=== PATIENT | male | born 1950 | race Caucasian/White ===

== ENCOUNTER 2017-12-10 10:00 | Outpatient (RCR) | payer MEDICARE, OTHER ==
[2017-09-11 17:35] VITALS: BP 118/78
[2017-09-11 17:36] VITALS: BP 122/70
--- NOTE | 2017-09-11 18:04 | CARDIAC REHAB PLAN OF CARE ---
Physician: Sangita BRAUN Patient is being seen: Pepe Porter Medical Diagnosis: TAVR Date of Initial Evaluation: September 11, 2017 SHORT TERM GOALS Short Term Goals Due Date: 10/11/17 Short Term Goals: 67 year old male phase II patient comes to cardiac rehab after having a TAVR procedure on August 07, 2017. Patient presents as alert and oriented with a room air SPO2 at 93% and the tank riveter shows a NSR without ectopy and resting rates in the 70's. Patient will need to be consistent with cardio type exercise of at least 150 minutes each week at a moderate level (3.0-6.0 METs) and add in weight resistance exercise at least twice a week. Patient will adjust diet to follow a heart healthy diet with proper calorie intake to allow for gradual weight loss from his current 203 pounds to his BMI max healthy weight of 164 pounds. Short Term Goals Met: Short Term Goals Not Met Due To: TRAINING DEVELOPER GOALS [facility] Goal Due Date: 11/11/17 [facility] Goals: nursing home goals are to maintain that consistency of exercise each week and to also maintain a consistent heart healthy diet. Improve cardiac health and overall health, and to lose weight. 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 Patient would like to improve endurance and strength and lose some weight. Patient Goals Met: Patient Goals Not Met Due To: Cardiac Rehabilitation Plan of Care Comment: The cardiac rehab staff will monitor, record, and evaluate vitals, ECG, and exercise results to provide the best plan of care for the patient throughout the 36 visit phase II program. CR staff will educate and motivate the patient during visits for rehab. FREDDY
[2017-09-17 13:28] VITALS: BP 128/78
[2017-09-17 13:29] VITALS: BP 132/68
[2017-09-19 13:28] VITALS: BP_SYST 118; BP_DIAS 58; BP_DIAS 66
[2017-09-21 17:34] VITALS: BP 124/60
[2017-09-21 17:35] VITALS: BP 118/68
[2017-09-24 17:10] VITALS: BP 118/62
[2017-09-24 17:11] VITALS: BP 110/92
[2017-09-26 13:01] VITALS: BP 120/58
[2017-09-26 13:02] VITALS: BP 128/62
[2017-09-28 13:02] VITALS: BP_SYST 112; BP_SYST 128; BP_DIAS 60; BP_DIAS 78
[2017-10-01 13:00] VITALS: BP 115/68
[2017-10-01 13:01] VITALS: BP 115/60
[2017-10-03 16:30] VITALS: BP_SYST 118; BP_SYST 138; BP_DIAS 60; BP_DIAS 70
[2017-10-05 17:08] VITALS: BP 132/70
[2017-10-05 17:09] VITALS: BP 130/70
[2017-10-08 17:12] VITALS: BP 114/78
[2017-10-08 17:13] VITALS: BP 124/70
--- NOTE | 2017-10-10 11:51 | CARDIAC REHAB PLAN OF CARE ---
Physician: Jackelyn Patient is being seen: Pepe Porter Medical Diagnosis: TAVR Date of Initial Evaluation: 2016 SHORT TERM GOALS Short Term Goals Due Date: 11/10/17 Short Term Goals: 67 year old male phase II patient comes to cardiac rehab after having a TAVR procedure on August 07, 2017. Patient presents as alert and oriented with a room air SPO2 at 93% and the cardiac cath rn shows a NSR without ectopy and resting rates in the 70's. Patient will need to be consistent with cardio type exercise of at least 150 minutes each week at a moderate level (3.0-6.0 METs) and add in weight resistance exercise at least twice a week. Patient will adjust diet to follow a heart healthy diet with proper calorie intake to allow for gradual weight loss from his current 203 pounds to his BMI max healthy weight of 164 pounds. Short Term Goals Met: Patient has made 12 visits for cardiac rehab and tolerates 40 minutes of cardio exercise and weight resistance exercise with 5 pound dumbbells. During exercise SPO2 values remain in the 90's on room air and the cardiac cath rn shows a ST without ectopy and rates up to 117. Short Term Goals Not Met Due To: DESK EDITOR GOALS Industrial Analyst Goal Due Date: 12/11/17 Industrial Analyst Goals: long term care phlebotomist goals for the patient are to remain consistent with cardiac rehab protocol for exercise and consistent with a heart healthy diet with portion control. Custodial Goals Met: Patient has made gradual increases in intensity and duration of exercise and improved strength. Industrial Analyst Goals Not Met Due To: Patients weight remains the same after one month in cardiac rehab. PATIENT'S GOALS Patient Goals Due Date: 11/10/17 Patient Goals: Patient goals remain to improve conditioning and overall health to remain active. Patient Goals Met: Patient remains motivated by exercise results to this point. Patient Goals Not Met Due To: Cardiac Rehabilitation Plan of Care Comment: Cardiac rehab staff will continue to monitor, record, and evaluate vitals, ECG, and exercise results to provide the best plan of care for the patient during the 36 visit phase II program. CR staff will motivate and educate the patient during visits for rehab. FREDDY
[2017-10-10 12:55] VITALS: BP_SYST 118; BP_SYST 122; BP_DIAS 58; BP_DIAS 68
[2017-10-17 13:11] VITALS: BP 120/62
[2017-10-17 13:12] VITALS: BP 116/68
[2017-10-24 17:24] VITALS: BP 120/70
[2017-10-24 17:25] VITALS: BP 110/70
[2017-10-26 12:59] VITALS: BP 124/72
[2017-10-26 13:00] VITALS: BP 138/72
[2017-10-29 13:07] VITALS: BP 116/66
[2017-10-29 13:08] VITALS: BP 116/60
[2017-10-31 12:47] VITALS: BP 130/60
[2017-10-31 12:48] VITALS: BP 124/68
[2017-11-02 18:32] VITALS: BP 108/64
[2017-11-03 13:11] VITALS: BP 122/64
[2017-11-05 13:08] VITALS: BP 118/70
[2017-11-05 13:09] VITALS: BP 120/64
--- NOTE | 2017-11-06 15:31 | CARDIAC REHAB PLAN OF CARE ---
Physician: Unique ENG Patient is being seen: Pepe Porter Medical Diagnosis: TAVR Date of Initial Evaluation: 09/11/17 SHORT TERM GOALS Short Term Goals Due Date: 12/07/17 Short Term Goals: 67 year old male phase II patient comes to cardiac rehab after having a TAVR procedure on August 07, 2017. Patient presents as alert and oriented with a room air SPO2 at 93% and the quality assurance monitor shows a NSR without ectopy and resting rates in the 70's. Patient will need to be consistent with cardio type exercise of at least 150 minutes each week at a moderate level (3.0-6.0 METs) and add in weight resistance exercise at least twice a week. Patient will adjust diet to follow a heart healthy diet with proper calorie intake to allow for gradual weight loss from his current 203 pounds to his BMI max healthy weight of 164 pounds. Short Term Goals Met: Patient has completed 19 visits for cardiac rehab and tolerates 40 minutes of cardio exercise, along with a 5 pound dumbbell weight resistance workout. During exercise SPO2 levels are maintained in the 90's on room air and the quality assurance monitor shows a NSR-ST without ectopy and rates of 98 -120. 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 Patient must also remain consistent with a heart healthy diet with proper portions to allow for weight loss towards his goals weight of 164 pounds. Auto Self Service Station Attendant Goals Met: Patient has tolerated an increase in duration and intensity of exercise. Auto Self Service Station Attendant Goals Not Met Due To: Weight loss has been minimal. PATIENT'S GOALS Patient Goals Due Date: 12/07/17 Patient Goals: Patient goals remain to improve cardiac and overall health with consistent exercise and a healthy diet. Patient Goals Met: Patient remains motivated by exercise results to this point. Patient Goals Not Met Due To: Cardiac Rehabilitation Plan of Care Comment: Cardiac rehab staff will monitor, record, and evaluate vitals, ECG, and exercise results to provide the best plan of care for the patient throughout the 36 visit, phase II program. CR staff will educate and motivate the patient during visits for rehab. FREDDY
[2017-11-07 17:50] VITALS: BP 110/72
[2017-11-07 17:51] VITALS: BP 110/60
[2017-11-09 16:34] VITALS: BP 120/70
[2017-11-12 13:00] VITALS: BP 132/70
[2017-11-12 13:01] VITALS: BP 124/68
[2017-11-26 13:24] VITALS: BP 110/70
[2017-11-26 13:25] VITALS: BP 114/68
[2017-11-28 12:37] VITALS: BP 104/66
[2017-11-28 12:38] VITALS: BP 124/70
[2017-12-03 17:37] VITALS: BP 112/66
[2017-12-03 17:38] VITALS: BP 110/70
[2017-12-05 18:28] VITALS: BP 108/62
[2017-12-05 18:29] VITALS: BP 102/62
--- NOTE | 2017-12-05 18:46 | CARDIAC REHAB PLAN OF CARE ---
Physician: Unique ENG Patient is being seen: Pepe Porter Medical Diagnosis: TAVR Date of Initial Evaluation: 09/11/2017 SHORT TERM GOALS Short Term Goals Due Date: 01/02/18 Short Term Goals: 67 year old male phase II patient comes to cardiac rehab after having a TAVR procedure on August 07, 2017. Patient presents as alert and oriented with a room air SPO2 at 93% and the satellite project site monitor shows a NSR without ectopy and resting rates in the 70's. Patient will need to be consistent with cardio type exercise of at least 150 minutes each week at a moderate level (3.0-6.0 METs) and add in weight resistance exercise at least twice a week. Patient will adjust diet to follow a heart healthy diet with proper calorie intake to allow for gradual weight loss from his current 203 pounds to his BMI max healthy weight of 164 pounds. Short Term Goals Met: Patient has made 26 visits for cardiac rehab and tolerates 40 minutes of moderate level cardio exercise of treadmill and elliptical, followed by a 6 pound dumbbell upper body workout. During exercise SPO2 levels are maintained in the 90's on room air and the satellite project site monitor shows a NSR-ST without ectopy and rates of 98-121. Patient has increased duration and intensity of exercise improving his endurance and strength. Short Term Goals Not Met Due To: Weight loss is still minimal. CHIMNEY SWEEPER GOALS Senior Care Goal Due Date: 02/02/18 Railway Signalling Engineer Goals: nursing home goals are to continue to be consistent with exercise achieving the minimum of 150 minutes each week of cardio exercise, and at least twice a week adding in weight resistance exercise. Patient will also make any further adjustments to a heart healthy diet with portion control and lose some weight towards his 164 pound max healthy BMI weight. Senior Care Goals Met: Patient has tolerated an increase in duration and intensity of exercise. Railway Signalling Engineer Goals Not Met Due To: Weight loss has been minimal. PATIENT'S GOALS Patient Goals Due Date: 01/02/18 Patient Goals: Patient goals are to improve cardiac and overall health with consistent exercise and dietary changes. Patient Goals Met: Patient remains motivated by exercise results. Patient Goals Not Met Due To: Cardiac Rehabilitation Plan of Care Comment: Cardiac rehab staff will continue to monitor, record, and evaluate vitals, ECG, and exercise results to provide the best plan of care for the patient throughout the 36 visit, phase II program. CR staff will motivate and educate the patient during visits for rehab. FREDDY
[2017-12-07 11:21] VITALS: BP 110/72
[2017-12-07 11:22] VITALS: BP 118/62
[~2017-12-10 10:00] MED LIST: ALF10 PO; ALLO100T70 PO; ASCO100T12 PO; ASP325 PO; ATOR10TA24 PO; CALC600T72 PO; CETI-169 PO; FEXO180T74 PO; FIN5 PO; FISH OIL1 CAP PO; MON10 PO; MULT-820 PO; NIA500 PO; PAN20 PO; PAN40 PO; RAMI10TA PO; RAMI2.5C42 PO
[2017-12-10 11:44] VITALS: BP 120/64
[2017-12-10 11:45] VITALS: BP 118/70
[2017-12-12 12:58] VITALS: BP_SYST 120; BP_SYST 142; BP_DIAS 70; BP_DIAS 76
== END 2017-12-12 18:00 | disposition home or self-care (01) ==
LOC: CARD 10:00
PROVIDERS: ATTEND Internal Medicine Cardiovascular Disease
DX: Z48.812 Encounter for surgical aftercare following surgery on the circulatory system (principal); Z95.2 Presence of prosthetic heart valve
CPT/HCPCS: 93797; 93798

== ENCOUNTER → 2017-12-14 | Outpatient (REF) | payer MEDICARE, OTHER | LOC: ZZSENDIN 12:00 | PROVIDERS: ATTEND Urology | DX: R97.20 Elevated prostate specific antigen [PSA] (principal); N41.1 Chronic prostatitis | CPT/HCPCS: 88305; 88344 ==

== ENCOUNTER 2018-01-07 10:00 | Outpatient (RCR) | payer MEDICARE, OTHER ==
[2017-12-24 16:10] VITALS: BP 116/62
[2017-12-24 16:11] VITALS: BP 102/58
[2017-12-26 13:21] VITALS: BP 132/84
[2017-12-26 13:22] VITALS: BP 104/68
[2017-12-28 13:51] VITALS: BP 128/78
[2017-12-29 17:59] VITALS: BP 124/74
[2017-12-31 17:57] VITALS: BP 118/68
[2017-12-31 18:01] VITALS: BP 110/62
[2018-01-02 13:20] VITALS: BP 120/64
[2018-01-02 13:21] VITALS: BP 100/68
[2018-01-04 11:31] VITALS: BP_SYST 120; BP_SYST 122; BP_DIAS 72; BP_DIAS 74
[2018-01-07 13:21] VITALS: BP_SYST 126; BP_SYST 130; BP_DIAS 72; BP_DIAS 78
== END 2018-01-07 18:00 | disposition home or self-care (01) ==
LOC: CARD 10:00
PROVIDERS: ATTEND Internal Medicine Cardiovascular Disease
DX: Z48.812 Encounter for surgical aftercare following surgery on the circulatory system (principal); Z95.2 Presence of prosthetic heart valve
CPT/HCPCS: 93798

== ENCOUNTER 2018-07-18 00:10 | Day surgery (SDC) | payer MEDICARE, OTHER ==
[2018-07-18] VITALS (7 sets, daily range): BP systolic 96–134; BP diastolic 58–94
[~2018-07-18] VITALS: Ht 172.7 cm; Wt 93.9 kg
[~2018-07-18 00:10] MED LIST changes: +MIRA25TA PO; -RAMI2.5C42 PO; +RAMI2.5C43 PO
[2018-07-18] MEDS ORDERED: PROPOFOL EMUL(*) 10MG/ML 20 ML 40 ML ONE (06:52)
[2018-07-18] MEDS ORDERED: LIDOCAINE MPF 1% 5 ML VIAL ONE (06:52)
[2018-07-18] MEDS ORDERED: NORMOSOL R SOLN(*) 1000 ML BAG 1,000 ML IV PRN (09:40)
[2018-07-18] MEDS ORDERED: LIDOCAINE/SOD BICARB 8.4% SYR ID ONE (09:40)
== END 2018-07-18 12:20 | disposition home or self-care (01) ==
LOC: OR 00:10
PROVIDERS: ATTEND Family Medicine
DX: Z12.11 Encounter for screening for malignant neoplasm of colon (principal)
CPT/HCPCS: 00812; G0121; J2001; J2704

== ENCOUNTER 2018-07-22 16:51 | Emergency (ER) | payer MEDICARE, OTHER ==
--- NOTE | 2018-07-22 17:00 | ER Report ---
History and Physical Time Seen By MD: 17:00 Hx. 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 Patient states that pain started about a 3:45 this afternoon. States he was sitting down at the computer the chest pain started. Patient states that he is not noticing anything that seems to make the pain better or worse. He states that he did talk to his proximal and 5 minutes after the pain started. He states he did go and lay down for a little while. He states that he took a nap when he woke up the pain was improved. He currently rates the pressure that he has his chest a 1-2 out of 10. He denies having any shortness of breath, nausea, vomiting. Patient states the pain was in the center of the chest, however did not radiate anywhere else. Patient denies any history of heart attacks in the past. REVIEW OF SYSTEMS: Respiratory: No cough, no dyspnea. Cardiovascular: As noted above Gastrointestinal: No vomiting, no abdominal pain. Musculoskeletal: No back pain. Allergies: Coded Allergies: Sulfa (Sulfonamide Antibiotics) (Verified Allergy, Intermediate, ERYTHEMA AND NAUSEA, 07/22/18) acetaminophen (Verified Allergy, Intermediate, ORAL IRRITATION, 07/22/18) propoxyphene (Verified Allergy, Intermediate, ORAL IRRITATION, 07/22/18) oxycodone (Verified Allergy, Mild, ORAL IRRITATION, 07/22/18) Home Meds Reported Medications Potassium Gluconate (POTASSIUM GLUCONATE) 500 Mg Tablet, 1 MG PO TID 07/22/18 Tadalafil (CIALIS) 20 Mg Tablet, 20 MG PO PRN 07/22/18 Aspirin (ASPIR 81) 81 Mg Tablet.dr, 81 MG PO QDAY, TAB 07/22/18 Mirabegron (MYRBETRIQ) 25 Mg Tab.er.24h, 25 MG PO DAILY 07/17/18 Cetirizine Hcl (CETIRIZINE HCL) 10 Mg Tablet, 10 MG PO DAILY 04/17/13 Ramipril (RAMIPRIL) 2.5 Mg Capsule, 2.5 MG PO QPM 04/17/13 Fexofenadine Hcl (Claudia) 180 Mg Tablet, 180 MG PO QDAY 02/11/08 Pantoprazole Sod (Protonix) 40 Mg Tabec, 40 MG PO QDAY 02/11/08 Alfuzosin Hcl (Uroxatral) 10 Mg Tabcr, 10 MG PO QDAY 02/11/08 Finasteride (Proscar) 5 Mg Tab, 5 MG PO QDAY 02/11/08 Atorvastatin (Lipitor) 10 Mg Tablet, 20 MG PO DAILY 02/11/08 Discontinued Reported Medications Aspirin (Aspirin) 325 Mg Tab, 325 MG PO QDAY 02/11/08 Past Medical/Surgical History Patient has a past medical history of heart murmur, hypertension, hyperlipidemia, reflux, prostate problems, lymphedema, arthritis in hands, compression fracture in T12 and L2, back pain, alcohol use. Patient has a surgical history of a TAVR, colonoscopy, sinus surgery, tonsillectomy. Patient has a family medical history of cancer, reaction to anesthesia. Reviewed Nurses Notes: Yes Hx Smoking: Yes (1PPD FOR 9 YRS) Smoking Status: Former Smoker Hx Alcohol Use: Yes Constitutional Vital Sign - Last 24 Hours 07/22/18 07/22/18 07/22/18 07/22/18 16:58 17:00 17:09 17:15 Temp 98.7 Pulse 80 77 69 Resp 18 15 21 B/P (MAP) 138/71 122/87 (99) 113/75 (88) Pulse Ox 90 90 96 O2 Delivery Room Air O2 Flow Rate 2.0 07/22/18 07/22/18 07/22/18 07/22/18 17:30 17:45 18:00 18:15 Pulse 70 68 70 66 Resp 20 16 18 11 B/P (MAP) 129/78 (95) 107/98 (101) 111/76 (88) 120/111 (114) Pulse Ox 92 93 93 92 07/22/18 07/22/18 07/22/18 07/22/18 19:00 19:05 19:10 19:15 Pulse 65 65 72 71 Resp 19 16 11 16 B/P (MAP) 102/92 (95) 134/80 (98) Pulse Ox 93 93 93 92 Physical Exam General Appearance: The patient is alert, has no immediate need for airway protection and no current signs of toxicity. Respiratory: Chest is non tender, lungs are clear to auscultation. Cardiac: regular rate and rhythm Gastrointestinal: Abdomen is soft and non tender, no masses, bowel sounds normal. Musculoskeletal: Neck: Neck is supple and non tender. Extremities have full range of motion and are non tender. Skin: No rashes or lesions. DIFFERENTIAL DIAGNOSIS: After history and physical exam differential diagnosis was considered for chest pain including but not limited to myocardial ischemia, pericarditis pulmonary embolus, chest wall pain, pleural inflammation and pulmonary infectious causes. Medical Decision Making Data Points Result Diagram: 07/22/18 1700 07/22/18 1700 Laboratory Hematology Test 07/22/18 17:00 07/22/18 18:36 Red Blood Count 5.38 M/uL (4.00-5.60) Mean Corpuscular Volume 87.6 fL (80.0-96.0) Mean Corpuscular Hemoglobin 29.6 pg (26.0-33.0) Mean Corpuscular Hemoglobin Concent 33.8 g/dL (32.0-36.0) Red Cell Distribution Width 14.5 % (11.5-14.5) Mean Platelet Volume 7.4 fL (7.2-11.1) Neutrophils (%) (Auto) 62.4 % (39.4-72.5) Lymphocytes (%) (Auto) 26.8 % (17.6-49.6) Monocytes (%) (Auto) 8.5 % (4.1-12.4) Eosinophils (%) (Auto) 1.4 % (0.4-6.7) Basophils (%) (Auto) 0.9 % (0.3-1.4) Nucleated RBC Relative Count (auto) 0.0 /100WBC Neutrophils # (Auto) 5.8 K/uL (2.0-7.4) Lymphocytes # (Auto) 2.5 K/uL (1.3-3.6) Monocytes # (Auto) 0.8 K/uL (0.3-1.0) Eosinophils # (Auto) 0.1 K/uL (0.0-0.5) Basophils # (Auto) 0.1 K/uL (0.0-0.1) Nucleated RBC Absolute Count (auto) 0.00 K/uL Sodium Level 140 mmol/L (137-145) Potassium Level 3.9 mmol/L (3.5-5.0) Chloride Level 103 mmol/L (98-107) Carbon Dioxide Level 25 mmol/L (22-30) Blood Urea Nitrogen 23 mg/dl (9-21) Creatinine 1.30 mg/dl (0.66-1.25) Glomerular Filtration Rate Calc 54.9 Random Glucose 121 mg/dl (75-110) Calcium Level 9.4 mg/dl (8.4-10.2) Total Bilirubin 0.8 mg/dl (0.2-1.3) Aspartate Amino Transf (AST/SGOT) 35 U/L (0-35) Alanine Aminotransferase (ALT/SGPT) 62 U/L (0-56) Alkaline Phosphatase 55 U/L (0-126) Total Protein 7.2 g/dl (6.3-8.2) Albumin 4.1 g/dl (3.5-5.0) Troponin I 0.014 ng/ml Chemistry Test 07/22/18 17:00 07/22/18 18:36 White Blood Count 9.3 k/uL (4.5-11.0) Red Blood Count 5.38 M/uL (4.00-5.60) Hemoglobin 15.9 g/dL (14.0-18.0) Hematocrit 47.1 % (42.0-52.0) Mean Corpuscular Volume 87.6 fL (80.0-96.0) Mean Corpuscular Hemoglobin 29.6 pg (26.0-33.0) Mean Corpuscular Hemoglobin Concent 33.8 g/dL (32.0-36.0) Red Cell Distribution Width 14.5 % (11.5-14.5) Platelet Count 171 K/uL (150-450) Mean Platelet Volume 7.4 fL (7.2-11.1) Neutrophils (%) (Auto) 62.4 % (39.4-72.5) Lymphocytes (%) (Auto) 26.8 % (17.6-49.6) Monocytes (%) (Auto) 8.5 % (4.1-12.4) Eosinophils (%) (Auto) 1.4 % (0.4-6.7) Basophils (%) (Auto) 0.9 % (0.3-1.4) Nucleated RBC Relative Count (auto) 0.0 /100WBC Neutrophils # (Auto) 5.8 K/uL (2.0-7.4) Lymphocytes # (Auto) 2.5 K/uL (1.3-3.6) Monocytes # (Auto) 0.8 K/uL (0.3-1.0) Eosinophils # (Auto) 0.1 K/uL (0.0-0.5) Basophils # (Auto) 0.1 K/uL (0.0-0.1) Nucleated RBC Absolute Count (auto) 0.00 K/uL Glomerular Filtration Rate Calc 54.9 Calcium Level 9.4 mg/dl (8.4-10.2) Total Bilirubin 0.8 mg/dl (0.2-1.3) Aspartate Amino Transf (AST/SGOT) 35 U/L (0-35) Alanine Aminotransferase (ALT/SGPT) 62 U/L (0-56) Alkaline Phosphatase 55 U/L (0-126) Total Protein 7.2 g/dl (6.3-8.2) Albumin 4.1 g/dl (3.5-5.0) Troponin I 0.014 ng/ml EKG/Imaging EKG Interpretation 12 lead EKG: Rhythm: normal sinus rhythm Magdalena: normal QRS: normal ST segments: normal Imaging 2 VIEWS CHEST INDICATION: Chest pain. COMPARISON: None available FINDINGS: Cardiomediastinal silhouette and pulmonary vessels within normal limits. Status post overlying the mid heart which may represent a proximal aortic stent. There is no focal infiltrate or lobar consolidation. There is no pneumothorax or pleural effusion. Small nodular opacity seen in the right midlung. No other nodules. Upper abdomen is unremarkable. No acute bony abnormality. IMPRESSION: 1. No acute cardiopulmonary process. 2. Small nodular opacity in the right midlung. This too small characterize and could be postinflammatory. However as there are no prior exams, suggest a follow-up x-ray in 6 months for reevaluation. Report Dictated By: Nas Astudillo at 07/22/2018 5:36 PM Report E-Signed By: Nas Astudillo at 07/22/2018 5:38 PM ED Course/Re-evaluation ED Course Patient was admitted and examined, history and physical were obtained. Differential diagnoses were considered. On examination lungs are clear, heart is regular, abdomen is soft and nontender. Patient has no tenderness to the chest. A CBC, CMP, troponin, EKG, chest x-ray were done. The results show a troponin of 0.012. Is negative the patient has a lipid having chest pain for approximately hour and half. Remainder the labs were unremarkable, chest x-ray was negative, lead EKG did show a normal sinus rhythm. A repeat troponin was done at 645, Zaroxolyn 3 hours after the onset of the chest pain. The results of that was 0.014. I believe is an equivocal difference which is statistically negligible. I discussed the findings with the patient and his . We will go ahead and discharge him home. He is follow-up with his fitness consultant at the end of the radha h is Deangelo schedule. He is return to the emergency room if condition worsens. Patient verbalized understanding and agreement with plan. Decision to Disposition Date: Jul 22, 2018 Decision to Disposition Time: 19:14 Depart Departure Latest Vital Signs Vital Signs Date Time Temp Pulse Resp B/P (MAP) Pulse Ox O2 Delivery O2 Flow Rate FiO2 07/22/18 19:15 71 16 134/80 (98) 92 07/22/18 17:09 2.0 07/22/18 16:58 98.7 Room Air Impression: Primary Impression: Chest pain Condition: Improved Disposition: HOME OR SELF-CARE Referrals: MARY LEE (PCP) Patient Instructions: Chest Pain (ED) Additional Instructions: Increase fluid intake. Get plenty of rest. Limit activity by pain. Return to the ER if condition worsens. Follow up with Cardiology as previously directed. Continue with normal medications and normal diet. Problem Qualifiers Primary Impression: Chest pain Chest pain type: other chest pain Qualified Codes: R07.89 - Other chest pain KARUNA GREEN Jul 22, 2018 17:00
[2018-07-22] MEDS ORDERED: TADA20TA33 PO (17:09)
[2018-07-22] MEDS ORDERED: ASPI-1471 PO (17:09)
[2018-07-22] MEDS ORDERED: POTA2TAB29 PO (17:09)
[2018-07-22] MEDS ORDERED: ASPIRIN 81 MG CHEW PO ONE (17:10)
[2018-07-22 17:19] LABS: PLATELET COUNT, AUTOMATED 171 K/uL (150-450)
--- NOTE | 2018-07-22 17:35 | EKG ---
FACILITY: [facility] PATIENT NAME: KEE BLUM : [id number] MR: [id number] V: [id number] EXAM DATE: ORDERING PHYSICIAN: KARUNA GREEN TECHNOLOGIST: Test Reason : Blood Pressure : / mmHG Vent. Rate : 070 BPM Atrial Rate : 070 BPM P-R Int : 180 ms QRS Dur : 090 ms QT Int : 388 ms P-R-T Axes : 040 011 058 degrees QTc Int : 419 ms Normal sinus rhythm Normal ECG No previous ECGs available Confirmed by DANIEL DE LA GARZA ([id number]) on 07/22/2018 10:01:32 PM Referred By: Confirmed By:DANIEL DE LA GARZA
--- NOTE | 2018-07-22 17:42 | RADIOLOGY IMAGING REPORT ---
FACILITY: [facility] PATIENT NAME: Nas Velázquez : 1950 MR: [id number] V: [id number] EXAM DATE: ORDERING PHYSICIAN: KARUNA GREEN TECHNOLOGIST: Location: [facility] Patient: Nas Velázquez : 1950 Visit/Account:[id number] Date of Sevice: 07/22/2018 2 VIEWS CHEST INDICATION: Chest pain. COMPARISON: None available FINDINGS: Cardiomediastinal silhouette and pulmonary vessels within normal limits. Status post overlying the mi d heart which may represent a proximal aortic stent. There is no focal infiltrate or lobar consolidation. There is no pneumothorax or pleural effusion. Small nodular opacity seen in the right midlung. No other nodules. Upper abdomen is unremarkable. No acute bony abnormality. IMPRESSION: 1. No acute cardiopulmonary process. 2. Small nodular opacity in the right midlung. This too small characterize and could be postinflammat ory. However as there are no prior exams, suggest a follow-up x-ray in 6 months for reevaluation. Report Dictated By: Nas Astudillo at 07/22/2018 5:36 PM Report E-Signed By: Nas Astudillo at 07/22/2018 5:38 PM WSN:[id number]
[2018-07-22 19:15] VITALS: BP 134/80
== END 2018-07-22 19:24 | disposition home or self-care (01) ==
LOC: ER 16:56
DX: R07.89 Other chest pain (principal)
CPT/HCPCS: 36415; 71046; 84484; 85025; 93005; 99284; A9270; 82040; 82247; 82310; 82374; 82435; 82565; 82947; 84075; 84132; 84155; 84295; 84450; 84460; 84520

== ENCOUNTER 2019-02-08 16:07 | Emergency (ER) | payer MEDICARE, OTHER ==
[~2019-02-08 16:07] MED LIST changes: +ASPI-1471 PO; +POTA2TAB29 PO; +TADA20TA33 PO
[2019-02-08] MEDS ORDERED: ASPIRIN 81 MG CHEW ONE (16:22)
[2019-02-08] MEDS ORDERED: ASPIRIN 81 MG CHEW PO ONE (16:25)
--- NOTE | 2019-02-08 16:25 | ER Report ---
History and Physical Time Seen By MD: 16:24 Hx. of Stated Complaint: CP STARTED ABOUT TWO HOURS AGO. HX OF CARDIAC ISSUES HPI/ROS CHIEF COMPLAINT: Chest pain HISTORY OF PRESENT ILLNESS: 68-year-old male patient persists to emergency room with complaint of chest pain. Patient states that he felt that his stomach was a little bit upset. He states that he went to lay down. He states when he did that they started having some chest pain. States he was able to fall asleep when he woke up he had persistent chest pain on left side. Patient states that he went and sat in a chair and the pain persisted although seem to be lessening. He felt that time that he should come and be evaluated. Patient does have a history of a valve replacement. He denies any shortness of breath, he denies any nausea, vomiting or diarrhea. Patient states he is not taking any medication for this. REVIEW OF SYSTEMS: Respiratory: No cough, no dyspnea. Cardiovascular: As noted above Gastrointestinal: No vomiting, no abdominal pain. Musculoskeletal: No back pain. Allergies: Coded Allergies: Sulfa (Sulfonamide Antibiotics) (Verified Allergy, Intermediate, ERYTHEMA AND NAUSEA, 02/08/19) acetaminophen (Verified Allergy, Intermediate, ORAL IRRITATION, 02/08/19) propoxyphene (Verified Allergy, Intermediate, ORAL IRRITATION, 02/08/19) oxycodone (Verified Allergy, Mild, ORAL IRRITATION, 02/08/19) Home Meds Reported Medications Calcium Carbonate (CALCIUM) 600 Mg Tablet, 600 MG PO 02/08/19 Fenofibric Acid (Choline) (FENOFIBRIC ACID) 135 Mg Capsule. 02/08/19 Potassium Gluconate (POTASSIUM GLUCONATE) 500 Mg Tablet, 1 MG PO TID 07/22/18 Tadalafil (CIALIS) 20 Mg Tablet, 20 MG PO PRN 07/22/18 Aspirin (ASPIR 81) 81 Mg Tablet., 81 MG PO QDAY, TAB 07/22/18 Cetirizine Hcl (CETIRIZINE HCL) 10 Mg Tablet, 10 MG PO DAILY 04/17/13 Ramipril (RAMIPRIL) 2.5 Mg Capsule, 2.5 MG PO QPM 04/17/13 Fexofenadine Hcl (Claudia) 180 Mg Tablet, 180 MG PO QDAY 02/11/08 Pantoprazole Sod (Protonix) 40 Mg Tabec, 40 MG PO QDAY 02/11/08 Alfuzosin Hcl (Uroxatral) 10 Mg Tabcr, 10 MG PO QDAY 02/11/08 Finasteride (Proscar) 5 Mg Tab, 5 MG PO QDAY 02/11/08 Atorvastatin (Lipitor) 10 Mg Tablet, 20 MG PO DAILY 02/11/08 Discontinued Reported Medications Mirabegron (MYRBETRIQ) 25 Mg Tab.er.24h, 25 MG PO DAILY 07/17/18 Past Medical/Surgical History Patient has a past medical history of heart murmur, hypertension, hyperlipidem ia, reflux, BPH, right leg lymphedema, arthritis, compression fracture T12 and L2, back pain, alcohol use. Patient has a surgical history of colonoscopy, TAVR, lithotripsy with stone basket, sinus surgery, tonsillectomy. Patient has a family medical history of cancer. Reviewed Nurses Notes: Yes Hx Smoking: Yes (1PPD FOR 9 YRS) Smoking Status: Former Smoker Hx Substance Use Disorder: No Hx Alcohol Use: Yes Constitutional Vital Sign - Last 24 Hours 02/08/19 02/08/19 02/08/19 02/08/19 16:07 16:10 16:11 16:22 Temp 98.1 Pulse ??? 83 90 Resp 14 12 B/P (MAP) 141/82 141/82 (101) Pulse Ox 90 89 O2 Delivery Room Air 02/08/19 02/08/19 02/08/19 02/08/19 16:30 16:34 16:37 16:40 Pulse 68 Resp 21 B/P (MAP) ???/??? (5625) 133/74 (93) Pulse Ox 95 O2 Flow Rate 2.0 02/08/19 02/08/19 02/08/19 02/08/19 16:52 17:00 17:07 17:12 Pulse 70 74 71 Resp 15 20 22 B/P (MAP) 116/85 (95) Pulse Ox 95 93 94 02/08/19 02/08/19 02/08/19 02/08/19 17:27 17:30 17:42 17:57 Pulse 73 68 70 Resp 31 19 23 B/P (MAP) 125/65 (85) Pulse Ox 93 93 94 02/08/19 02/08/19 02/08/19 02/08/19 18:00 18:12 18:17 18:30 Pulse 68 67 Resp 27 30 B/P (MAP) 106/90 (95) 102/75 (84) Pulse Ox 93 93 02/08/19 02/08/19 02/08/19 02/08/19 18:32 18:44 18:45 18:47 Pulse 67 ??? Resp 24 20 B/P (MAP) 72/57 (62) 108/95 (99) Pulse Ox 94 91 Physical Exam General Appearance: The patient is alert, has no immediate need for airway protection and no current signs of toxicity. Respiratory: Chest is non tender, lungs are clear to auscultation. Cardiac: regular rate and rhythm Gastrointestinal: Abdomen is soft and non tender, no masses, bowel sounds normal. Musculoskeletal: Neck: Neck is supple and non tender. Extremities have full range of motion and are non tender. Skin: No rashes or lesions. DIFFERENTIAL DIAGNOSIS: After history and physical exam differential diagnosis was considered for chest pain including but not limited to myocardial ischemia, pericarditis pulmonary embolus, chest wall pain, pleural inflammation and pulmonary infectious causes. Medical Decision Making Data Points Result Diagram: 02/08/19 1633 02/08/19 1633 Laboratory Hematology Test 02/08/19 16:33 02/08/19 18:02 Red Blood Count 5.49 M/uL (4.00-5.60) Mean Corpuscular Volume 89.3 fL (80.0-96.0) Mean Corpuscular Hemoglobin 30.3 pg (26.0-33.0) Mean Corpuscular Hemoglobin Concent 33.9 g/dL (32.0-36.0) Red Cell Distribution Width 14.5 % (11.5-14.5) Mean Platelet Volume 7.4 fL (7.2-11.1) Neutrophils (%) (Auto) 74.0 % (39.4-72.5) Lymphocytes (%) (Auto) 15.3 % (17.6-49.6) Monocytes (%) (Auto) 8.5 % (4.1-12.4) Eosinophils (%) (Auto) 1.7 % (0.4-6.7) Basophils (%) (Auto) 0.5 % (0.3-1.4) Nucleated RBC Relative Count (auto) 0.1 /100WBC Neutrophils # (Auto) 9.4 K/uL (2.0-7.4) Lymphocytes # (Auto) 1.9 K/uL (1.3-3.6) Monocytes # (Auto) 1.1 K/uL (0.3-1.0) Eosinophils # (Auto) 0.2 K/uL (0.0-0.5) Basophils # (Auto) 0.1 K/uL (0.0-0.1) Nucleated RBC Absolute Count (auto) 0.01 K/uL Sodium Level 139 mmol/L (137-145) Potassium Level 3.8 mmol/L (3.5-5.0) Chloride Level 105 mmol/L (98-107) Carbon Dioxide Level 24 mmol/L (22-30) Blood Urea Nitrogen 19 mg/dl (9-21) Creatinine 0.90 mg/dl (0.66-1.25) Glomerular Filtration Rate Calc > 60.0 Random Glucose 100 mg/dl (75-110) Calcium Level 9.2 mg/dl (8.4-10.2) Total Bilirubin 0.6 mg/dl (0.2-1.3) Aspartate Amino Transf (AST/SGOT) 33 U/L (0-35) Alanine Aminotransferase (ALT/SGPT) 55 U/L (0-56) Alkaline Phosphatase 65 U/L (0-126) Total Protein 7.3 g/dl (6.3-8.2) Albumin 4.3 g/dl (3.5-5.0) Troponin I < 0.012 ng/ml Chemistry Test 02/08/19 16:33 02/08/19 18:02 White Blood Count 12.6 k/uL (4.5-11.0) Red Blood Count 5.49 M/uL (4.00-5.60) Hemoglobin 16.6 g/dL (14.0-18.0) Hematocrit 49.0 % (42.0-52.0) Mean Corpuscular Volume 89.3 fL (80.0-96.0) Mean Corpuscular Hemoglobin 30.3 pg (26.0-33.0) Mean Corpuscular Hemoglobin Concent 33.9 g/dL (32.0-36.0) Red Cell Distribution Width 14.5 % (11.5-14.5) Platelet Count 171 K/uL (150-450) Mean Platelet Volume 7.4 fL (7.2-11.1) Neutrophils (%) (Auto) 74.0 % (39.4-72.5) Lymphocytes (%) (Auto) 15.3 % (17.6-49.6) Monocytes (%) (Auto) 8.5 % (4.1-12.4) Eosinophils (%) (Auto) 1.7 % (0.4-6.7) Basophils (%) (Auto) 0.5 % (0.3-1.4) Nucleated RBC Relative Count (auto) 0.1 /100WBC Neutrophils # (Auto) 9.4 K/uL (2.0-7.4) Lymphocytes # (Auto) 1.9 K/uL (1.3-3.6) Monocytes # (Auto) 1.1 K/uL (0.3-1.0) Eosinophils # (Auto) 0.2 K/uL (0.0-0.5) Basophils # (Auto) 0.1 K/uL (0.0-0.1) Nucleated RBC Absolute Count (auto) 0.01 K/uL Glomerular Filtration Rate Calc > 60.0 Calcium Level 9.2 mg/dl (8.4-10.2) Total Bilirubin 0.6 mg/dl (0.2-1.3) Aspartate Amino Transf (AST/SGOT) 33 U/L (0-35) Alanine Aminotransferase (ALT/SGPT) 55 U/L (0-56) Alkaline Phosphatase 65 U/L (0-126) Total Protein 7.3 g/dl (6.3-8.2) Albumin 4.3 g/dl (3.5-5.0) Troponin I < 0.012 ng/ml EKG/Imaging EKG Interpretation 12 lead EKG: Rhythm: normal sinus rhythm War: normal QRS: normal ST segments: normal Imaging CHEST PA LAT INDICATION: COMPARISON: 07/22/2018 FINDINGS: Heart size within normal limits. T AVR again noted There is no focal infiltrate or lobar consolidation. There is no pneumothorax or pleural effusion. IMPRESSION: 1. No acute cardiopulmonary process. Report Dictated By: Philip Irvin at 02/08/2019 4:49 PM Report E-Signed By: Philip Irvin at 02/08/2019 4:49 PM ED Course/Re-evaluation ED Course Patient was admitted to an exam room, history and physical were obtained. Differential diagnoses were considered. On examination lungs are clear, heart was regular, abdomen was soft and nontender. A CBC, CMP, troponin, EKG, chest x- ray were done. Patient had an elevated white count of 12,000 with left shift, remainder the labs were unremarkable. Chest x-ray was done which showed no acute cardiac pulmonary processes. EKG showed a normal sinus rhythm. I did opt to go ahead and repeat the troponin which came back unchanged. I discussed the findings with the patient and his family. I feel that his abdominal pain is likely what caused his chest pain. We will go ahead and discharge him home at this time. He is to return to emergency room if condition worsens. He is follow- up with his primary care provider in the next week. Patient verbalized understanding and agreement with plan. Decision to Disposition Date: Feb 08, 2019 Decision to Disposition Time: 18:39 Depart Departure Latest Vital Signs Vital Signs Date Time Temp Pulse Resp B/P (MAP) Pulse Ox O2 Delivery O2 Flow Rate FiO2 02/08/19 18:47 ??? 20 91 02/08/19 18:45 108/95 (99) 02/08/19 16:40 2.0 02/08/19 16:10 98.1 Room Air Impression: Primary Impression: Chest pain Condition: Improved Disposition: HOME OR SELF-CARE Referrals: MARY LEE (PCP) Patient Instructions: Chest Pain (ED) Additional Instructions: I suspect that this pain was related to the stomach. Get plenty of rest. Increase fluid intake. Return to the ER if condition worsens. Follow up with your primary care provider in the next week. Continue with normal medications. Problem Qualifiers Primary Impression: Chest pain Chest pain type: other chest pain Qualified Codes: R07.89 - Other chest pain KARUNA GREEN Feb 08, 2019 16:24
--- NOTE | 2019-02-08 16:39 | EKG ---
FACILITY: [facility] PATIENT NAME: KEE BLUM : [id number] MR: [id number] V: [id number] EXAM DATE: ORDERING PHYSICIAN: KARUNA GREEN TECHNOLOGIST: JOAQUIN Lara Reason : CP Blood Pressure : / mmHG Vent. Rate : 072 BPM Atrial Rate : 072 BPM P-R Int : 170 ms QRS Dur : 100 ms QT Int : 384 ms P-R-T Axes : 041 029 042 degrees QTc Int : 420 ms Normal sinus rhythm Normal ECG When compared with ECG of 22-JUL-2018 16:55, No significant change was found Confirmed by NEPTALI SILVER ([id number]) on 02/08/2019 9:17:59 PM Referred By: Confirmed By:NEPTALI SILVER
[2019-02-08 16:45] LABS: PLATELET COUNT, AUTOMATED 171 K/uL (150-450)
--- NOTE | 2019-02-08 16:53 | RADIOLOGY IMAGING REPORT ---
FACILITY: [facility] PATIENT NAME: Nas Velázquez : 1950 MR: [id number] V: [id number] EXAM DATE: ORDERING PHYSICIAN: KARUNA GREEN TECHNOLOGIST: Location: [facility] [place] Patient: Nas Velázquez : 1950 Visit/Account:[id number] Date of Sevice: 02/08/2019 CHEST PA LAT INDICATION: COMPARISON: 07/22/2018 FINDINGS: Heart size within normal limits. T AVR again noted There is no focal infiltrate or lobar consolidation. There is no pneumothorax or pleural effusion. IMPRESSION: 1. No acute cardiopulmonary process. Report Dictated By: Philip Irvin at 02/08/2019 4:49 PM Report E-Signed By: Philip Irvin at 02/08/2019 4:49 PM WSN:[id number]
[2019-02-08] MEDS ORDERED: FENO135C (16:57)
[2019-02-08] MEDS ORDERED: CALC600T63 PO (16:58)
[2019-02-08 18:45] VITALS: BP 108/95
== END 2019-02-08 18:46 | disposition home or self-care (01) ==
LOC: ER 16:45
DX: R07.89 Other chest pain (principal)
CPT/HCPCS: 71046; 84484; 85025; 93005; 99284; A9270; 82040; 82247; 82310; 82374; 82435; 82565; 82947; 84075; 84132; 84155; 84295; 84450; 84460; 84520

== ENCOUNTER 2019-03-27 00:22 | Day surgery (SDC) | payer MEDICARE, OTHER ==
[2019-03-24 09:18] LABS: PLATELET COUNT, AUTOMATED 155 K/uL (150-450)
--- NOTE | 2019-03-26 13:30 | HISTORY AND PHYSICAL ---
DATE OF ADMISSION: March 27, 2019 CHIEF COMPLAINT Elevated PSA. HISTORY OF PRESENT ILLNESS The patient is a 68-year-old white male who has been followed in the urology clinic for several years, who was more recently noted to have an increasing PSA. His urologic history begins back approximately in the year of 1999 when he had a PSA elevation up to 4.1 up from a baseline of approximately 2. At that time, he underwent a biopsy in the office which revealed a 44 cc volume prostate and no cancer. His PSA subsequently decreased back to approximately 2.5 for several years and then gradually increased up to approximately 3.5 with a PSA2 of 34%. Proscar was added to his alpha nadira in 2005 and he had a good clinical response. His PSA also decreased from approximately 3.5 to 4 down to 1.5 to 2. However, in early 2017, it had increased up to 3.7 while being on his Proscar. A PCA3 test was performed which was positive at 28. Therefore, he underwent another biopsy in the office which revealed a 57 cc volume prostate. 12 biopsies were obtained which were negative for cancer. However, a followed up ConfirmMDx test was positive with a 28% chance of cancer on subsequent biopsy. The patient was then followed with a PSA which was stable at 3.5 and then at 3.6 in August. However, in February of this year his PSA had increased to 5.4. Options were discussed including multiparametric MRI, a SelectMDx test, 4kscore prostate health index and another biopsy. The patient has elected to undergo the latter and is therefor now being brought to the operating room for planned saturation type biopsies under general anesthetic. Again, risk and benefits were explained including, a false negative rate, infection with possible sepsis, increasing urinary symptoms postoperatively, bleeding and need for secondary procedure. PAST MEDICAL HISTORY * Hypercholesterolemia. * Obstructive sleep apnea. * BPH. * ED. * Gastroesophageal reflux disease. * Degenerative joint disease. * Hard of hearing. * Pericarditis as a child. PAST SURGICAL HISTORY * Percutaneous Bioprosthetic aortic valve replacement July 2017. * Sinus surgery. ALLERGIES Sulfa. CURRENT MEDICATIONS * Uroxatral. * Multivitamins. * Aspirin. * Lipitor. * Zyrtec. * Claudia. * Proscar. * Myrbetriq. * Fish oil. * Protonix. * Cialis. * Altace. SOCIAL HISTORY The patient is and lives in [place], [place]. He is retired. He denies illicit drug use or tobacco use. REVIEW OF SYSTEMS The patient denies shortness of breath, productive cough, chest pain, fever or chills, gross hematuria, flank pain, change in weight, or bleeding disorder. PHYSICAL EXAMINATION GENERAL: The patient is a well-developed, well-nourished white male in no acute distress. HEENT: Normocephalic, atraumatic. CHEST: Clear to auscultation bilaterally. CARDIOVASCULAR: Regular rate and rhythm. ABDOMEN: Soft, nontender, no masses are palpated. : Deferred to the OR. EXTREMITIES: Without clubbing, cyanosis, or edema. NEURO: Nonfocal. IMPRESSION This is a 68-year-old white male with increasing prostate-specific antigen on a combination treatment with Proscar, Uroxatral and Myrbetriq. Prostate-specific antigen is currently 5.4 and his last biopsy was in November of last year. PLAN We will perform a transrectal ultrasound guided saturation biopsy of the prostate. FREDDY
[~2019-03-27] VITALS: Ht 172.7 cm; Wt 88.0 kg
[~2019-03-27 00:22] MED LIST changes: +ASCO-182 PO; +ATOR40TA24 PO; +CALC600T63 PO; +CHOL10005 PO; +FENO135C; +GLUC-125 PO; +MULT1CAP59 PO; +OMEG-11 PO; +POTA99TA6 PO; +UBID30CA27 PO; +VITA1CAP52 PO
[2019-03-27 09:10] VITALS: BP 100/67
[2019-03-27] MEDS ORDERED: LIDOCAINE/SOD BICARB 8.4% SYR ID ONE (09:35)
[2019-03-27] MEDS ORDERED: NS 0.9% IVPB ONE (09:35)
[2019-03-27] MEDS ORDERED: NORMOSOL R SOLN(*) 1000 ML BAG 1,000 ML IV PRN (09:35)
[2019-03-27] MEDS ORDERED: MIDAZOLAM 2 MG/2 ML VIAL IVP PRN (09:35)
[2019-03-27] MEDS ORDERED: GENTAMICIN IVPB ONE (09:35)
[2019-03-27] MEDS ORDERED: ceFAZolin(*) 1 GM VIAL 1 GM in NS(*) 0.9% 100 ML MINI-BAG 100 ML IVPB ONE (09:35)
[2019-03-27] MEDS ORDERED: fentaNYL CITR 100 MCG/2 ML AMP ONE (09:36)
[2019-03-27] MEDS ORDERED: PROPOFOL EMUL(*) 10MG/ML 20 ML 20 ML ONE (09:37)
[2019-03-27] MEDS ORDERED: DEXAMETHASONE SOD PHOS 10MG/ML ONE (09:37)
[2019-03-27] MEDS ORDERED: ONDANSETRON 4 MG/2 ML VIAL ONE (09:37)
[2019-03-27] MEDS ORDERED: LIDOCAINE MPF 1% 5 ML VIAL ONE (09:37)
[2019-03-27] MEDS ORDERED: ePHEDrine 25 MG/5 ML DISP.SYR IVP ONE (10:28)
--- NOTE | 2019-03-27 11:43 | OPERATIVE REPORT 1 ---
EVENT DATE: March 27, 2019 SURGEON: Riley Salazar MD ANESTHESIOLOGIST: Anival Ragsdale MD ANESTHESIA: General anesthetic. PREOPERATIVE DIAGNOSIS Elevated Prostate-specific antigen. POSTOPERATIVE DIAGNOSIS Elevated Prostate-specific antigen. PROCEDURE PERFORMED 1. Transrectal ultrasound guidance for needle placement in prostate. 2. Transrectal prostate needle biopsy x36. 3. Transrectal prostatic ultrasound. ESTIMATED BLOOD LOSS Minimal. IV FLUIDS Crystalloid. PATHOLOGY 36 prostatic biopsy cores sent in 12 containers marked right and left, mediolateral, base, mid apex. COMPLICATIONS None. CONDITION The patient was taken to the recovery room awake and in stable condition. STATEMENT OF MEDICAL NECESSITY The patient is a 68-year-old white male with increasing PSA while on Proscar. He underwent a biopsy in the office approximately 15 months ago which revealed a 57 cc volume gland. He had no cancer on his biopsy. However, his ConfirmMDx test was positive at a rate of 20% for missed cancer. Follow up PSAs have not decreased and have been in the 3.6 to 5.4 range. He is therefore now being brought to the operating room for saturation type biopsies. DESCRIPTION OF PROCEDURE The patient was brought to the operating room. After general anesthetic was obtained, he was placed in the dorsal lithotomy position. Digital rectal exam was performed which revealed approximately a 56 cc volume prostate. He had some mild induration on the left mid gland, but no true nodularity. His vault was empty and he had a normal sphincter tone. At this point, the end-fire ultrasound probe was introduced into the patient's rectum atraumatically and transrectal ultrasound of the prostate was performed. Material Liaison pictures at the seminal vesicles, base, mid apex, and lateral areas were documented. The prostatic volume was then calculated at 57 cc. Following this, the ultrasound biopsy guide was placed on the cursor on the screen and this was used to perform ultrasound guidance of a needle biopsy in the prostate. A total of 36 transrectal needle biopsies were performed. I began at the right base lateral aspect where three biopsies were performed. These were all sent in one container. Then moved to the medial aspect at the right base and proceeding out to the mid gland, doing lateral medial and finally the apex lateral medial on the right side. This was then repeated on the left side. Again, a total of 36 biopsies were then sent in the 3 containers at the various locations. At the conclusion of the procedure, the ultrasound probe was removed from the rectum atraumatically. He was taken down from the dorsal lithotomy position, awakened in the operating room and taken to the recovery area in stable condition. The patient will be allowed to be discharged home today. We will see him in the Urology clinic in 1 to 2 weeks to reveal his pathology. FREDDY
--- NOTE | 2019-03-27 13:07 | RADIOLOGY IMAGING REPORT ---
FACILITY: [facility] - [place] PATIENT NAME: Nas Velázquez : 1950 MR: [id number] V: [id number] EXAM DATE: ORDERING PHYSICIAN: JEMIMA SALES TECHNOLOGIST: Location: [facility] Patient: Nas Velázquez : 1950 Visit/Account:[id number] Date of Sevice: 03/27/2019 EXAMINATION: Ultrasound guidance for prostate biopsy 03/27/2019 10:15 AM HISTORY: Prostate biopsy COMPARISON: None FINDINGS: Transrectal ultrasound imaging was provided for guidance for prostate biopsy. IMPRESSION: Transrectal ultrasound for prostate biopsy guidance. Report Dictated By: Dread Artis MD at 03/27/2019 1:01 PM Report E-Signed By: Dread Artis MD at 03/27/2019 1:02 PM WSN:[email or web address]
== END 2019-03-27 12:25 | disposition home or self-care (01) ==
LOC: OR 00:22
PROVIDERS: ATTEND Urology
DX: C61 Malignant neoplasm of prostate (principal); N41.1 Chronic prostatitis; R97.20 Elevated prostate specific antigen [PSA]; N40.1 Benign prostatic hyperplasia with lower urinary tract symptoms
CPT/HCPCS: 36415; 55700; 76942; 81001; 84153; 85025; 87088; 88305; 88344; J0690; J1100; J1580; J2001; J2405; J2704; J3010; J7050; 82040; 82247; 82310; 82374; 82435; 82565; 82947; 84075; 84132; 84155; 84295; 84450; 84460; 84520

== ENCOUNTER → 2019-04-16 | Outpatient (CLI) | payer MEDICARE, OTHER ==
[2019-04-16 16:43] LABS: PLATELET COUNT, AUTOMATED 179 K/uL (150-450)
== END ==
LOC: LAB 16:08
PROVIDERS: ATTEND Urology
DX: C61 Malignant neoplasm of prostate (principal)
CPT/HCPCS: 36415; 82040; 82247; 82248; 82310; 82374; 82435; 82565; 82947; 84075; 84132; 84155; 84295; 84450; 84460; 84520; 85025

== ENCOUNTER → 2019-04-22 | Outpatient (CLI) | payer MEDICARE, OTHER ==
[~2019-04-22] MED LIST changes: +IOPAMIDOL 76% 100 ML INFUS BTL 100 ML ONE
--- NOTE | 2019-04-22 07:57 | RADIOLOGY IMAGING REPORT ---
FACILITY: [facility] PATIENT NAME: Nsa Velázquez : 1950 MR: [id number] V: [id number] EXAM DATE: ORDERING PHYSICIAN: JEMIMA SALES TECHNOLOGIST: Location: [facility] Patient: Nas Velázquez : 1950 Visit/Account:[id number] Date of Sevice: 04/22/2019 Exam type: CHEST PA AND LAT History: Prostate cancer Comparison: 02/08/2019. Findings: Both lungs are well-expanded and clear. There is no focal infiltrate, pleural effusion or pneumothora x. Heart size is slightly prominent. Transcatheter aVR is noted. Sclerotic density projects over the right anterior 4th rib is slightly more prominent than 07/22/2018. In the setting of prostate cancer osseous metastasis is not excluded. This lesion will be interrogat ed with bone scan later today. IMPRESSION: 1. No acute cardiopulmonary disease. 2. Sclerotic density projects over the right anterior 4th rib slightly more prominent than 07/22/2018. Given history of prostate cancer, a sclerotic bone metastasis is not excluded and this lesion will b e interrogated with a bone scan later today. Report Dictated By: Nas Forrest MD at 04/22/2019 7:45 AM Report E-Signed By: Nas Forrest MD at 04/22/2019 7:51 AM WSN:[id number]
[2019-04-22 08:06] LABS: PLATELET COUNT, AUTOMATED 180 K/uL (150-450)
--- NOTE | 2019-04-22 08:53 | RADIOLOGY IMAGING REPORT ---
FACILITY: [facility] [place] PATIENT NAME: Nas Velázquez : 1950 MR: [id number] V: [id number] EXAM DATE: ORDERING PHYSICIAN: JEMIMA SALES TECHNOLOGIST: Location: [facility] Patient: Nas Velázquez : 1950 Visit/Account:[id number] Date of Sevice: 04/22/2019 ABDOMEN/PELVIS W/WO CONTRAST HISTORY: Prostate cancer TECHNIQUE: Axial images acquired through the abdomen/pelvis both with and without IV contrast.. Kena nal and sagittal reformatting also performed. One of the following dose optimization techniques was utilized in the performance of this exam: Automated exposure control; adjustment of the mA and/or kV according to the patient's size; or use of an iterative reconstruction technique. Specific details can be referenced in the facility's radiology CT exam operational policy. CONTRAST: 75 mL Isovue-370 COMPARISON: None. FINDINGS: Visualized lung bases: Negative. Hepatobiliary: Negative. Spleen: Negative. Adrenals: Negative. Pancreas: Pancreatic steatosis. Kidneys ureters and bladder: There is a 3 mm nonobstructive stone in the left kidney at the cortical medullary junction (image 64 series 2). Kidneys otherwise normal. The ureters are unremarkable. On the lateral view (image 66 series 9) there is a 1.5 cm diameter nodular mass impressing into the miguel dder base which probably represents prostatic hypertrophy but a prostatic or transitional malignancy would be difficult to exclude. Genitalia: Prostate without mildly enlarged measuring 5.5 cm transverse by 5.1 cm AP. See above re garding probable hypertrophic changes impressing the bladder base. Post contrast there is a five mm diameter focus of enhancement in the posterior left lobe (axial image 130) possibly representing the reported malignancy. GI: Negative. Vessels/spaces/nodes: Small subcentimeter lymph nodes are seen in the retroperitoneum and in the pelv is all measuring less than 5 mm in diameter. No ryder involvement by size criteria. Bones/soft tissues: Mild concavity in the superior endplate of the L3 vertebral body probably repres ents a Schmorl's node. No definite osseous metastasis. Additional findings: None pertinent. IMPRESSION: Prostate mildly enlarged and there is a nodular impression into the bladder base. This may represent a benign prostatic hypertrophic nodule although prostatic malignancy or even transitional malignancy related to the bladder cannot be excluded. Consider cystoscopy for further evaluation. 5 mm focus of enhancement in the posterior left lateral prostate lobe is nonspecific although may rep resent the reported malignancy. No definite evidence of metastatic disease. Nonobstructive right-sided nephrolithiasis Report Dictated By: Micha Barry MD at 04/22/2019 8:22 AM Report E-Signed By: Micha Barry MD at 04/22/2019 8:47 AM WSN:[email or web address]
--- NOTE | 2019-04-22 13:57 | RADIOLOGY IMAGING REPORT ---
FACILITY: [facility] [place] PATIENT NAME: Nas Velázquez : 1950 MR: [id number] V: [id number] EXAM DATE: ORDERING PHYSICIAN: JEMIMA SALES TECHNOLOGIST: [place]: [facility] [place] Patient: Nas Velázquez : 1950 Visit/Account:[id number] Date of Sevice: 04/22/2019 WHOLE BODY BONE SCAN HISTORY: Prostate cancer TECHNIQUE: 25.1 mCi technetium 99m HDP was injected intravenously. Delayed anterior and posterior wh ole body gamma camera images were obtained. Additional gamma camera images: Right left lateral skull COMPARISON: CT abdomen pelvis performed today and two-view chest performed today FINDINGS: Bone radiotracer activity: No abnormal isotope is identified over the anterior right fourth rib. Fa int isotope uptake is seen along the posterior aspect of multiple contiguous right ribs. The pattern suggests old trauma. Degenerative type uptake is noted over the knees to ankles the shoulders and t he wrists. Isotope uptake over the lower cervical spine is likely degenerative in nature Extraosseous radiotracer activity: Unremarkable. Renal and urinary collecting system activity: Unremarkable. IMPRESSION: . There are multiple faint areas of isotope uptake seen along contiguous posterior right ribs. The pattern suggests old trauma.. No abnormal uptake identified over the anterior right fourth rib. Isotope uptake over the lower cervical spine is likely degenerative in nature Report Dictated By: Shy Tran MD at 04/22/2019 1:42 PM Report E-Signed By: Shy Tran MD at 04/22/2019 1:51 PM WSN:[email or web address]
== END ==
LOC: NUC 00:30
PROVIDERS: ATTEND Urology
DX: C61 Malignant neoplasm of prostate (principal); N20.0 Calculus of kidney; R93.7 Abnormal findings on diagnostic imaging of other parts of musculoskeletal system
CPT/HCPCS: 36415; 71046; 74178; 78306; 82248; 85025; A9503; Q9967; 82040; 82247; 82310; 82374; 82435; 82565; 82947; 84075; 84132; 84155; 84295; 84450; 84460; 84520